=== PATIENT | male | born 1970 | race Caucasian/White ===

== ENCOUNTER 2022-10-13 19:43 | Emergency (ER) | payer OTHER ==
[~2022-10-13] VITALS: Ht 172.7 cm; Wt 93.0 kg
== END 2022-10-13 20:40 | disposition home or self-care (01) ==
LOC: ER 19:43
DX: S93.501A Unspecified sprain of right great toe, initial encounter (principal); W10.9XXA Fall (on) (from) unspecified stairs and steps, initial encounter; Z91.030 Bee allergy status
CPT/HCPCS: 73660; 99283-25